=== PATIENT | female | born 1955 | race Caucasian/White ===

== ENCOUNTER 2019-11-14 07:56 | Emergency (ER) | payer OTHER, SELFPAY ==
--- NOTE | ~2019-11-14 | CT_ITS ---
EXAMINATION: CT abdomen pelvis w con DATE: 11/14/2019 09:43 INDICATION: Abdominal pain, back pain. TECHNIQUE: Computed tomography (CT) of the abdomen and pelvis was performed with 100 cc Omnipaque 350 intravenous contrast. Automated exposure control and iterative reconstruction technique were employe d. Exam dose: 207.09 mGy-cm total exam DLP. COMPARISON: 10/21/2019 right upper quadrant abdominal ultrasound examination; choledocholithiasis was demonstrated FINDINGS: There is minimal atelectasis at the lung bases. Normal heart size. No pericardial or pleura l effusion. Diffuse hepatic steatosis. No hepatic space-occupying mass lesion is evident. Normal splenic size. No pancreatic mass lesion or calcification or ductal dilatation. The gallbladder is present. No gallbladder wall thickening is evident. No bile duct dilatation. Normal morphology of the adrenal glands. Probable bilateral renal cysts, measuring up to 8 mm dimension on the right, 1.7 cm dimension on the left. No urinary tract calculus or hydroureteronephrosis or abnormality of the urinary bladder is evident. Status post hysterectomy. There is atherosclerotic calcification of the abdominal aorta and branches; no abdominal aortic aneur ysm. No intraperitoneal or retroperitoneal or pelvic mass lesion or adenopathy or ascites. Normal appendix. There are multiple diverticula of the left colon; no CT evidence of diverticulitis. No bowel obstruct ion or intraperitoneal free air. No suspicious osteolytic or osteoblastic lesions are noted. There is moderately prominent degenerativ e disc disease at L1-L5 S1. IMPRESSION: Hepatic steatosis Cholelithiasis by 10/21/2019 ultrasound examination Bilateral renal cysts Status post hysterectomy Diverticulosis of the colon; no CT evidence of diverticulitis Reviewed, dictated and finalized at [facility]. Reviewed, dictated and finalized at location [facility]. T TELLER
[2019-11-14 08:05] VITALS: BP 128/93; PULSE 89; RESP 18; TEMP 36.9; O2SAT 100
[2019-11-14] MEDS: FAMOTIDINE 20 MG/2 ML VIAL IV PUSH (08:23)
[2019-11-14] MEDS: ONDANSETRON INJ 4 MG/2 ML VIAL IV PUSH (08:23)
[2019-11-14] MEDS: MORPHINE SULFATE 4 MG/ML INJ IV PUSH (08:23)
[2019-11-14] MEDS: LACTATED RINGERS 2,000 ML 999 ML IV CONT (08:24)
--- NOTE | 2019-11-14 08:33 | ED.ABDPAIN ---
HPI - Abdominal Pain General Chief Complaint: Abdominal Pain Stated Complaint: abd pain/back pain/scheduled for gb surgery Time Seen by Provider: 11/14/19 08:04 Source: patient, family and old records reviewed Mode of arrival: ambulatory Limitations: no limitations History of Present Illness HPI narrative: Patient is a 64-year-old female who presents for evaluation of abdominal pain that has been present since diffuse aching pain with nausea denies fever vomiting notes intermittent diarrhea. Saw general surgery Thursday has planned elective cholecystectomy. Patient on arrival in mild acute pain distress has not taken anything for her symptoms Related Data Home Medications Medication Instructions Recorded Confirmed diclofenac sodium 75 mg 75 mg PO BID 11/01/19 11/09/19 tablet,delayed release diphenhydramine HCl 25 mg capsule 25 mg PO TID PRN 11/01/19 11/09/19 esomeprazole magnesium 20 mg 20 mg PO DAILY 11/01/19 11/09/19 capsule,delayed release loratadine 10 mg tablet 10 mg PO DAILY 11/01/19 11/09/19 multivitamin 1 tablet PO DAILY 11/01/19 11/09/19 Allergies Allergy/AdvReac Type Severity Reaction Status Date / Time No Known Allergies Allergy Verified 11/14/19 08:31 Review of Systems Review of Systems: All systems reviewed & are unremarkable except as noted in HPI and below PMFSH Past Medical History Medical History Arthritis Deficient knowledge of combined anteroposterior colporrhaphy GERD (gastroesophageal reflux disease) Insomnia disorder Surgical History Surgical History H/O dilation and curettage S/P removal of ovarian cyst Social History Social History Smoking status: Former smoker Tobacco type: cigarettes Alcohol intake: never Gender identity (if verbalized by the patient): Female Exam Narrative: Exam Narrative: GENERAL: Well-appearing, well-nourished HEAD: Normocephalic, atraumatic. EYES: PERRLA and EOMI. ENT: Nares clear, no rhinorrhea or epistaxis. Mucous membranes moist. Oropharynx without tonsillar hypertrophy exudate or other lesions. CHEST: Clear to auscultation. No respiratory distress. No wheezes rales or rhonchi HEART: Regular rate and rhythm. No murmur heard. Normal peripheral pulses. ABDOMEN: Soft, diffusely tender no rebound or guarding, nondistended, normal active bowel sounds. EXTREMITIES: Normal range of motion. No edema. SKIN: Warm, dry, no rash. NEURO: No focal deficits. Alert and oriented x3. Cranial nerves II through XII grossly intact PSYCH: Normal mood and affect. Course Course Emergency Course: Patient in the room at this time aware of discussion with general surgery in the room in no distress aware of case findings treatment plan and diagnosis agreeing to follow-up as directed or to return if symptoms worsen or concerns patient will continue with plan to follow-up with surgery is afebrile nontoxic-appearing no distress. Consultations Consultation #1: Surgeon revealed case recommends the patient can follow in clinic provided with reasons to return does not recommend antibiotics at this time Vital Signs Vital signs: Vital Signs Temperature 98.4 F 11/14/19 08:05 Pulse Rate 89 11/14/19 08:05 Respiratory Rate 18 11/14/19 08:05 Blood Pressure 128/93 H 11/14/19 08:05 Pulse Oximetry 100 11/14/19 08:05 Temperature 98.4 F 11/14/19 08:05 Pulse Rate 89 11/14/19 08:05 Respiratory Rate 18 11/14/19 08:05 Blood Pressure 128/93 H 11/14/19 08:05 Pulse Oximetry 100 11/14/19 08:05 MDM - Abdominal Pain MDM Narrative Medical decision making narrative: Patient in the room aware of case findings treatment plan and diagnosis agreeing to follow-up as directed or to return if symptoms worsen or concerns patient is afebrile nontoxic-appearing no distress. Patient pr
[2019-11-14 08:50] LABS: Basophils Absolute Auto 0.1 K/mm3 (0.0-0.1); Basophils Percent Auto 0.8 % (0.2-1.2); Eosinophils Absolute Auto 0.2 K/mm3 (0-0.3); Hematocrit 44.9 % (37.0-47.0); Hemoglobin 14.6 g/dL (12.0-15.0); Immature Granulocyte Absolute 0.02 K/mm3 (0.00-0.031); Immature Granulocyte Percent A 0.3 % (0-0.5); Lymphocytes Absolute Auto 1.86 K/mm3 (0.9-3.2); Lymphocytes Percent Auto 29.8 % (18.3-44.2); Mean Corpuscular HGB Conc 32.5 g/dl (32-36); Mean Corpuscular Hemoglobin 32.3 pg (26-34); Mean Corpuscular Volume 99.3 fl (80-100); Mean Platelet Volume 10.1 fl (7.4-10.4); Monocytes Absolute Auto 0.6 K/mm3 (0.1-0.6); Monocytes Percent Auto 9.8 % (2.6-8.5); Neutrophils Absolute Auto 3.5 K/mm3 (1.3-6.7); Neutrophils Percent Auto 56.3 % (45.5-73.1); Platelet Count Result 235 k/mm3 (150-375); Red Blood Count 4.52 M/mm3 (4.2-5.4); Red Cell Distribution Width 12.1 % (11.5-14.5); White Blood Count 6.2 K/mm3 (4.5-10.0)
[2019-11-14 08:51] LABS: Add Urine Microscopic? NO; Appearance Urine Clear (Clear); Bilirubin Urine Negative (Negative); Blood Urine Negative (Negative); Color Urine Straw (Yellow); Glucose Urine UA Negative (Negative); Ketones Urine Negative (Negative); Leukocyte Esterase Ur Negative LEU/UL (Negative); Nitrate Urine Negative (Negative); Protein Urine Negative (Negative); Specific Grav Ur 1.009 (1.001-1.035); Urobilinogen Urine Negative mg/dL (<2.0)
[2019-11-14 09:00] VITALS: BP 127/84; PULSE 66; RESP 16; O2SAT 98
[2019-11-14 09:01] LABS: Alanine Aminotransferase 57 U/L (4-35); Albumin Level 4.6 g/dL (3.5-5.1); Alkaline Phosphatase 47 U/L (38-126); Aspartate Amino Transferase 39 U/L (14-36); Bilirubin,Total 0.7 mg/dL (0.2-1.3); Blood Urea Nitrogen 26 mg/dL (7-17); Calcium 9.2 mg/dL (8.4-10.2); Carbon Dioxide 26 mmol/L (22-30); Chloride 101 mmol/L (98-107); Estimated CRCL calculation 60 ml/min; Estimated Glomerular Filt Rate > 60; Glucose 95 mg/dL (65-105); Lipase 308 U/L (23-300); Potassium 4.6 mmol/L (3.4-5.0); Sodium 139 mmol/L (137-145)
[2019-11-14 10:00] VITALS: BP 135/70; PULSE 75; RESP 20; O2SAT 99
[2019-11-14] MEDS: KETOROLAC 30 MG/ML VIAL (*BKC) IV PUSH (11:14)
[2019-11-14] MEDS: HYOSCYAMINE SULFATE 0.125 MG TABLET PO (11:14)
[2019-11-14 11:30] VITALS: BP 116/51; PULSE 72; RESP 18; O2SAT 99
--- NOTE | 2019-11-17 11:28 | PC.NURSE ---
LATE ENTRY This note is being entered to document information to the patient's record. The following information was omitted on 11/14/2019. Patient received 2 liters of LR. Infusion was stopped at 1024 and patient tolerated well.
== END 2019-11-14 11:30 | disposition home or self-care (01) ==
PROVIDERS: Emergency Medicine Emergency Medical Services; Emergency Provider Family Medicine; PCP Physician Assistant
DX: R10.9 Unspecified abdominal pain (principal); M19.90 Unspecified osteoarthritis, unspecified site; K21.9 Gastro-esophageal reflux disease without esophagitis; Z87.891 Personal history of nicotine dependence; K57.30 Diverticulosis of large intestine without perforation or abscess without bleeding
CPT/HCPCS: 36415; 74177; 80053; 81003; 83690; 85025; 96361; 96374; 96375; 99284; A9270; J0131; J1885; J2270; J2405; J7120; Q9967

== ENCOUNTER 2019-11-15 01:16 | Day surgery (SDC) | payer OTHER, SELFPAY ==
[2019-11-09 10:35] VITALS: BMI 19.6
--- NOTE | 2019-11-14 16:21 | PC.NURSE ---
PT STATES NO CHANGE IN HEALTH HX
[2019-11-15] VITALS (10 sets, daily range): BP systolic 96–137; BP diastolic 50–70; PULSE 61–97; RESP 18–24; TEMP 36.5–37.4; O2SAT 95–100
--- NOTE | 2019-11-15 08:02 | ECG_ITS ---
Measurements Intervals [place] Rate: 69 P: 44 W[place]: 160 QRS: 24 QRSD: 87 T: 29 QT: 391 QTc: 421 Interpretive Statements SINUS RHYTHM BASELINE ARTIFACT- V5 NORMAL ECG Electronically Signed On 11-15-2019 8:31:56 SAFEKEEPING CLERK by Tino Guallpa D.O.
--- NOTE | 2019-11-15 08:10 | WPDANESEPPF ---
Anes - Initial Pre Proc Eval Procedure: Operation Date: 11/15/19 09:30 Proposed Procedures p Laparoscopic Cholecystectomy, Possible Open - Leonel Cohen DO Date/Time: 11/15/19 08:10 Surgeon: Leonel Cohen DO Pre Op Diagnosis: symptomatic cholelithiasis Patient Data Age: 64 Gender: F Height: 5 ft 5 in Weight: 53.52 kg Allergies Allergy/AdvReac Type Severity Reaction Status Date / Time No Known Allergies Allergy Verified 11/14/19 16:10 Home Medications Medication Instructions Recorded Confirmed Type diclofenac sodium 75 mg 75 mg PO BID 11/01/19 11/14/19 History tablet,delayed release diphenhydramine HCl 25 mg capsule 25 mg PO TID PRN 11/01/19 11/14/19 History esomeprazole magnesium 20 mg 20 mg PO DAILY 11/01/19 11/14/19 History capsule,delayed release loratadine 10 mg tablet 10 mg PO DAILY 11/01/19 11/14/19 History multivitamin 1 tablet PO DAILY 11/01/19 11/14/19 History famotidine [Pepcid] 20 mg PO BID #14 tablet 11/14/19 11/14/19 Rx hyoscyamine sulfate [Levsin] 0.125 mg PO TID PRN #10 tablet 11/14/19 11/14/19 Rx ondansetron 4 mg PO Q8H PRN #10 tablet 11/14/19 11/14/19 Rx Patient hx anesthesia problems: none Family hx anesthesia problems: none PMFSH Past Medical History Medical History Arthritis Deficient knowledge of combined anteroposterior colporrhaphy GERD (gastroesophageal reflux disease) Insomnia disorder Surgical History Surgical History H/O dilation and curettage S/P removal of ovarian cyst Family History Family History Other Cancer of unknown origin Diabetes mellitus Social History Social History Smoking status: Former smoker Tobacco type: cigarettes Alcohol intake: never Gender identity (if verbalized by the patient): Female Anes - Eval Final PreProcedure Day of Procedure 11/15/19 08:10 Patient weight: normal Heart: regular rate and rhythm Lungs: clear to auscultation Airway: Mallampati scale class II Neurological: alert and oriented Last oral intake: >/= 8 hours ASA classification: II Emergent: no Anesthetic plan: proceed Anesthesia type and monitoring: general ETT and standard monitoring Informed Consent: The patient's anesthetic plan and its attendant risks and benefits were discussed with the patient/family/POA. Questions were solicited and answers provided to the satisfaction of the patient/family/POA.
[2019-11-15] MEDS: LACTATED RINGERS 1,000 ML 30 ML IV CONT (08:35)
[2019-11-15] MEDS: SCOPOLAMINE 1.5 MG PATCH TRANSDERM (09:00)
[2019-11-15] MEDS: FAMOTIDINE 20 MG/2 ML VIAL IV PUSH (09:01)
--- NOTE | 2019-11-15 09:09 | WPDHPUPDATE1 ---
History and Physical Update Update Date/Time: 11/15/19 09:09 History and Physical has been reviewed, including an updated exam of the patient. There are NO changes in the patient's condition. Risks, benefits, and alternatives have been discussed and questions answered. Patient agrees to proceed with procedure.
[2019-11-15] MEDS: IBUPROFEN IV 800 MG/200 ML 800 MG/200 ML BAG 400 MG IVPB (09:42)
[2019-11-15] MEDS: ceFAZolin 2 GM/D5W 50 ML 2 GM/50 ML BAG IVPB (09:42)
[2019-11-15] MEDS: BUPIVACAINE/EPINEPHRINE 0.5% 30 ML VIAL INFILTRATE (10:22)
--- NOTE | 2019-11-15 10:35 | PM.PROC ---
Procedure Note - Detailed Date of procedure: 11/15/19 Pre-op diagnosis: symptomatic cholelithiasis Post-op diagnosis: same Procedure performed: Laparoscopic Cholecystectomy Description of procedure: Procedure as well as risks, benefits, and alternatives were discussed with patient. Written consent was obtained and placed in chart prior to procedure. The patient was brought back to surgical suite. Patient was placed in supine position on operating table. Time-out was done to confirm patient and procedure. Patient was then intubated by the anesthesia department. Abdomen was prepped and draped in sterile fashion using chlorhexidine prep. 0.5% bupivacaine with epinephrine was infiltrated at each site of incision. An 11 millimeter vertical incision was made at the inferior portion of the umbilicus using a 15 blade scalpel. Blunt dissection was carried down to the linea alba. The linea alba was then incised using a 15 blade scalpel. The peritoneum was then bluntly entered. An 11 millimeter trocar was inserted and cabon dioxied insuflation was used to create a pneumoperitoneum. The camera was inserted and the abdomen was inspected. The patient was placed in reverse Trendelenberg position and rotated slightly to the left. A 5 millimeter incision was made in the epigastric region, and a 5 millimeter trocar was inserted under direct visualization. Two 5 millimeter incisions were made in the right upper quadrant, and two 5 millimeter trocars were inserted under direct visualization. The gallbladder was identified and grasped at the fundus and retracted superiorly. It was then grasped at the infundibulum retracted laterally. Careful dissection around the neck of the gallbladder was performed using blunt dissection with a [place] grasper and hook electrocautery. The cystic duct was identified, and a window was created behind it. The cystic artery was also identified and a window was created behind it. The critical view of safety was identified, visualizing the cystic duct running directly into the neck of the gallbladder, and the cystic artery running directly into the wall of the gallbladder. A 5 millimeter clip education research analyst was then used to place 2 clips proximally and 1 clip distally on both the cystic duct and cystic artery. They were then both transected using endoscopic scissors. Once safely away from the raghu hepatitis, the gallbladder was dissected free from the liver bed using hook electrocautery. Hemostasis was achieved along the way. The gallbladder was removed completely and then removed through the umbilical port. The liver bed was then inspected. Hemostasis appeared adequate, and our clips appeared secure. The area was gently irrigated with sterile saline. No other abnormalities were seen. The patient was flattened out in bed, and 1 final inspection was made around the abdominal cavity. The ports were then removed under direct visualization, the camera was removed, and the pneumoperitoneum was released. The fascia of the umbilical incision was approximated using an 0 Vicryl [id number] suture. The skin of the incisions was approximated using 4-0 Monocryl subcuticular sutures. Exofin glue was applied on top. The patient was then awakened from anesthesia, extubated, and transferred to recovery. Anesthesia: GETA and local (0.5% bupivicaine with epinephrine) Surgeon: Leonel Cohen DO Estimated blood loss (mL): 5 Complications: No immediate complications Condition: stable Disposition: same day Findings: This is a 64-year-old woman who presented with epigastric and right upper quadrant pain over the past couple years. She noticed that specific foods such as pork seem to worsen her pain. Her pain has been worse over the past month. He gallbladder ultrasound was done on 10/21 and this showed evidence of cholelithiasis without evidence of cholecystitis. She then presented to the emergency department yesterday with worsening pain, and CT s
== END 2019-11-15 13:03 | disposition home or self-care (01) ==
PROVIDERS: PCP Physician Assistant; Visit Provider Surgery
PROC: 0FT44ZZ Resection of Gallbladder, Percutaneous Endoscopic Approach (ICD-10-PCS; CPT 47562; principal; 2019-11-15 09:30)
DX: K80.10 Calculus of gallbladder with chronic cholecystitis without obstruction (principal); K21.9 Gastro-esophageal reflux disease without esophagitis; M19.90 Unspecified osteoarthritis, unspecified site; Z87.891 Personal history of nicotine dependence
CPT/HCPCS: 47562; 36415; 86850; 86900; 86901; 88304; 93005; A9270; J0131; J0690; J1100; J1741; J2250; J2405; J2704; J2710; J3010; J7030; J7120

== ENCOUNTER 2021-10-01 16:18 | Emergency (ER) | payer BC, SELFPAY ==
--- NOTE | ~2021-10-01 | XR_ITS ---
EXAMINATION: XR chest 2V EXAM DATE: 10/01/2021 17:54 INDICATION: Cough for 4 days, shortness of breath. TECHNIQUE: Frontal and lateral projections of the chest obtained and reviewed. There is no prior charu dy for comparison. FINDINGS: There are cholecystectomy clips. The lungs are clear. There are no pleural effusions. Th e cardiomediastinal silhouette is within normal limits. There is no pneumothorax suspected. The bon es and soft tissues are unremarkable. IMPRESSION: No acute cardiopulmonary findings. Reviewed, dictated and finalized at location [facility]. ENSER OPERATOR
[2021-10-01 17:09] VITALS: BP 144/81; PULSE 83; RESP 20; TEMP 36.9; O2SAT 100
--- NOTE | 2021-10-01 17:42 | ED.URI ---
HPI - URI/Sore Throat General Chief Complaint: Upper Respiratory Infection Stated Complaint: Cough, shortness of breath Time Seen by Provider: 10/01/21 17:34 Source: patient and RN notes reviewed Mode of arrival: ambulatory Limitations: no limitations History of Present Illness HPI Narrative: Patient presents today complaining of 4-day history of cough, body aches, shortness of breath, nasal congestion. She started experiencing substernal chest wall pain that is worse with coughing over the last couple of days. She got tested for COVID-19 today at work, but was sent home sick. She has not been taking any back-zke-loslbcy medication for her symptoms prior to arrival. MD elicited complaint: cough and nasal congestion Related Data Home Medications Medication Instructions Recorded Confirmed diclofenac sodium 75 mg 75 mg PO BID 11/01/19 12/01/19 tablet,delayed release diphenhydramine HCl 25 mg capsule 25 mg PO TID PRN 11/01/19 12/01/19 esomeprazole magnesium 20 mg 20 mg PO DAILY 11/01/19 12/01/19 capsule,delayed release loratadine 10 mg tablet 10 mg PO DAILY 11/01/19 12/01/19 multivitamin 1 tablet PO DAILY 11/01/19 12/01/19 Allergies Allergy/AdvReac Type Severity Reaction Status Date / Time No Known Allergies Allergy Verified 10/01/21 17:13 Review of Systems Review of Systems: CONSTITUTIONAL: Denies fever, chills, or sweats.+ Body aches EYES: Denies visual changes, redness, or discharge. ENT: Denies rhinorrhea, sore throat, or otalgia.+ Congestion CARDIOVASCULAR: Denies chest pain, palpitations, or edema. RESPIRATORY: + Cough, shortness of breath, chest wall pain GASTROINTESTINAL: Denies abdominal pain, nausea, vomiting, or diarrhea. GENITOURINARY: Denies dysuria or hematuria. SKIN: Denies rash, itching, or wounds. MUSCULOSKELETAL: Denies back pain, joint pain, or myalgia. NEUROLOGIC: Denies headache, numbness, tingling, or weakness. PSYCH: Denies depression or anxiety. [facility] Past Medical History Medical History (Updated 10/01/21 @ 18:14 by Pilar Lagos, EXPERIMENTAL PREFLIGHT MECHANIC, BC) Arthritis Deficient knowledge of combined anteroposterior colporrhaphy GERD (gastroesophageal reflux disease) Insomnia disorder Surgical History Surgical History H/O dilation and curettage History of laparoscopic cholecystectomy 11/21/2019 S/P removal of ovarian cyst Family History Family History Other Cancer of unknown origin Diabetes mellitus Social History Social History Smoking status: Former smoker Tobacco type: cigarettes Alcohol intake: never Gender identity (if verbalized by the patient): Female Comments At time of signature, I have reviewed and agree with nursing past medical, surgical, social and family history unless otherwise noted. Please see nursing chart for further information. There is no relevant family history pertinent to the presenting complaint Exam Narrative: GENERAL: Mildly ill-appearing, well-nourished, and in no acute distress. HEAD: Normocephalic, atraumatic. EYES: EOMI. No redness or drainage. Conjunctivae normal. ENT: Mucous membranes pink and moist. Nares clear. No rhinorrhea. TMs normal bilaterally. Throat normal. Uvula midline. NECK: Normal AROM. Supple. No lymphadenopathy. CHEST: No respiratory distress. Clear to auscultation. Harsh cough noted HEART: Regular rate and rhythm. No murmur appreciated. Normal peripheral pulses. ABDOMEN: Soft, nontender, nondistended, normal active bowel sounds. MUSCULOSKELETAL: No bony tenderness. EXTREMITIES: Normal range of motion. No edema. SKIN: Warm, dry, no rash. Capillary refill normal. Normal skin turgor. NEURO: No focal deficits. Alert and oriented x3. Gait steady. PSYCH: Normal affect. No signs of depression or anxiety. Course Course Level of Care:
== END 2021-10-01 18:25 | disposition home or self-care (01) ==
PROVIDERS: Emergency Provider Nurse Practitioner; PCP Physician Assistant
DX: B34.9 Viral infection, unspecified (principal); Z87.891 Personal history of nicotine dependence; M19.90 Unspecified osteoarthritis, unspecified site; K21.9 Gastro-esophageal reflux disease without esophagitis
CPT/HCPCS: 71046; 99213; G0463

== ENCOUNTER → 2023-11-16 15:58 | Outpatient (CLI) | payer MEDICARE, SELFPAY ==
--- NOTE | ~2023-11-16 | XR_ITS ---
EXAM: XR shoulder LT min 2V DATE: 11/16/2023 16:20 HISTORY: fall left shoulder pain limited rom . COMPARISON: None available. FINDINGS: Normal mineralization. No fracture or dislocation. No lytic or blastic lesion. Mild polyar ticular left shoulder osteoarthritis. No erosion or periosteal change. Soft tissues within normal cuevas its. IMPRESSION: No acute osseous finding in the left shoulder. Reviewed, dictated and finalized at location K. TABLE TESTER
== END ==
PROVIDERS: PCP Physician Assistant; Visit Provider Physician Assistant
DX: M25.512 Pain in left shoulder (principal); W19.XXXA Unspecified fall, initial encounter
CPT/HCPCS: 73030

== ENCOUNTER 2023-12-01 08:00 | Outpatient (CLI) | payer MEDICARE, SELFPAY ==
--- NOTE | ~2023-12-01 | XR_ITS ---
EXAMINATION: XR lg joint inject/asp w image DATE: 12/01/2023 09:21 INDICATION: Left shoulder pain TECHNIQUE: A time-out was performed to verify the patient's name, date of , and procedure to b e performed. The procedure including the risks, benefits, and alternatives was discussed with the pat ient. Risks discussed included bleeding and infection. The patient understood the risks and agreed to proceed. The skin overlying the rotator cuff interval of the left glenohumeral joint was prepped an d draped in usual sterile fashion. Anesthetic was administered with 1% lidocaine subcutaneously. A 22 G needle was advanced under fluoroscopic guidance into the joint. Injection of 1 mL of Omnipaque 240 confirmed intra-articular position of the needle. Subsequently, injectate consisting of 4 mm a 3 :1 mixture of 1% lidocaine: 40 mg/mL contrast along for a total dosage of 40 mg triamcinolone was ins tilled. Washout of contrast was seen confirming intra-articular administration. The needle was remove d and the entry site was cleaned and dressed. There were no immediate complications. Fluoroscopy exp osure time was 0.1 minutes. The total number of images was 2. FINDINGS: Real-time fluoroscopy demonstrates the needle in the left glenohumeral joint. Patient's jax n prior to procedure:4/10. Patient's pain following the procedure: 0/10. IMPRESSION: 1. Successful left glenohumeral joint injection of local anesthetic and steroid with decrease in the patient's presenting pain. Reviewed, dictated and finalized at location A. RWRITING SUPPORT SPECIALIST
== END 2023-12-01 08:01 | disposition home or self-care (01) ==
PROVIDERS: PCP Physician Assistant; Visit Provider Physician Assistant
DX: M25.512 Pain in left shoulder (principal)
CPT/HCPCS: 20610; 77002; J3301; Q9966